=== PATIENT | male | born 1975 | race African-American/Black ===

== ENCOUNTER 2019-11-15 13:31 | Emergency (ER) | payer SELFPAY ==
[~2019-11-15] VITALS: Ht 167.6 cm; Wt 79.4 kg
[2019-11-15] MEDS ORDERED: IV NORMAL SALINE 1,000ML 1,000 ML IV ONE (14:00)
[2019-11-15 14:17] LABS: BASO # 0.1 x10^3/uL (0.0-0.2); BASO % 1 % (0-3); EOS # 0.1 x10^3/uL (0.0-0.7); EOS % 1 % (0-3); HEMATOCRIT 42.5 % (39.0-53.0); HEMOGLOBIN 14.2 g/dL (13.0-17.5); LYMPH # 1.4 x10^3/uL (1.0-4.8); LYMPH % 11 % (24-48); MEAN CORPUSCULAR HEMOGLOBIN 27 pg (25-35); MEAN CORPUSCULAR HGB CONC 34 g/dL (31-37); MEAN CORPUSCULAR VOLUME 81 fL (79-100); MONO # 0.6 x10^3/uL (0.0-1.1); MONO % 5 % (0-9); NEUT # 10.8 x10^3uL (1.8-7.7); NEUT % 83 % (31-73); PLATELET COUNT 227 x10^3/uL (140-400); RED BLOOD COUNT 5.23 x10^6/uL (4.30-5.70); RED CELL DISTRIBUTION WIDTH 14.1 % (11.5-14.5); WHITE BLOOD COUNT 13.1 x10^3/uL (4.0-11.0)
--- NOTE | 2019-11-15 14:19 | RAD ---
EXAM: Chest, 2 views. HISTORY: Dizziness. COMPARISON: None. FINDINGS: 2 views of the chest are obtained. There is multifocal infiltrate within the right upper, middle and lower lobes. There is no pleural effusion or pneumothorax. The heart is normal in size. IMPRESSION: Multifocal pneumonia within the right lung. Electronically signed by: Lindsey Epps MD (11/15/2019 2:16 PM) [facility]
--- NOTE | 2019-11-15 14:22 | RAD ---
EXAM: Head CT without contrast. HISTORY: Dizziness. TECHNIQUE: Computed tomographic images of the head were obtained without contrast. *One or more of the following individualized dose reduction techniques were utilized for this examination: 1. Automated exposure control. 2. Adjustment of the mA and/or kV according to patient size. 3. Use of iterative reconstruction technique. COMPARISON: None. FINDINGS: There is no acute or subacute extra-axial or intraparenchymal hemorrhage. There is no mass effect or midline shift. There is no hydrocephalus. The montgomery-white matter differential pattern is intact. There is a tiny cavum septum pellucidum. There is slight developmental asymmetry in the size of the left greater than right lateral ventricles. The visualized portions of the orbits, paranasal sinuses and mastoid air cells are unremarkable. No suspicious calvarial lesion is seen. IMPRESSION: No acute intracranial findings. Electronically signed by: Lindsey Epps MD (11/15/2019 2:19 PM) [facility]
[2019-11-15 14:29] LABS: CALCIUM 8.6 mg/dL (8.5-10.1); CREATININE 1.5 mg/dL (0.7-1.3); GFR 61.2; POTASSIUM 4.3 mmol/L (3.5-5.1)
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
[2019-11-15] MEDS ORDERED: ONDANSETRON PF 4 MG/2 ML VIAL. IVP ONE ×2 (14:30→18:00)
[2019-11-15] MEDS ORDERED: INSULIN REGULAR 100 UNIT/ML 3ML VIAL. IV ONE (14:30)
[2019-11-15 14:35] LABS: ALBUMIN 3.1 g/dL (3.4-5.0); ALBUMIN/GLOBULIN RATIO 0.8 (1.0-1.7); TOTAL BILIRUBIN 0.3 mg/dL (0.2-1.0)
--- NOTE | 2019-11-15 14:41 | EKG ---
[address] [address] Test Date: 2019-11-15 Test Time: 13:44:00 Pat Name: ANDREW BARTLETT Department: Room: Gender: M Informatics Manager: : 1975 Requested By: LEESA BELTRAN Order Number: [id number] Reading MD: Measurements Intervals [place] Rate: 84 P: 52 AR: 154 QRS: 42 QRSD: 84 T: 25 QT: 338 QTc: 402 Interpretive Statements SINUS RHYTHM OTHERWISE NORMAL ECG RI6.01 No previous ECG available for comparison
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
[2019-11-15 15:45] LABS: AMPHETAMINE/METHAMPHETAMINE NEG (NEG); BARBITURATES NEG (NEG); BENZODIAZEPINES NEG (NEG); CANNABINOIDS POS (NEG); COCAINE POS (NEG); METHADONE NEG (NEG); OPIATES NEG (NEG); PHENCYCLIDINE NEG (NEG)
[2019-11-15] MEDS ORDERED: AZITHROMYCIN 500 MG in IV NORMAL SALINE 250ML 250 ML IV ONE (15:45)
[2019-11-15] MEDS ORDERED: AZIT250T6 PO (15:52)
[2019-11-15 15:55] LABS: BACTERIA,URINE 0 /HPF (0-FEW); BILIRUBIN,URINE NEG (NEG); CLARITY,URINE CLEAR; COLOR,URINE YELLOW; GLUCOSE,URINE >=1000 mg/dL (NEG); NITRITE,URINE NEG (NEG); SQUAMOUS EPITHELIAL CELL,UR OCC /LPF; UROBILINOGEN,URINE 0.2 mg/dL (0.2 mg/dL); WBC,URINE RARE /HPF (0-4)
[2019-11-15] MEDS ORDERED: IV NORMAL SALINE 250ML 250 ML ONE (16:16)
[2019-11-15] MEDS ORDERED: IV NORMAL SALINE 50ML 50 ML ONE (16:17)
[2019-11-15] MEDS ORDERED: AZITHROMYCIN 500 MG VIAL. IV ONE (16:17)
[2019-11-15] MEDS ORDERED: cefTRIAXone SODIUM 1 GM VIAL ONE (16:17)
[2019-11-15 17:39] VITALS: BP 145/82
[2019-11-15] MEDS ORDERED: IV RINGERS SOLUTION,LACTATED 1,000 ML IV SCH (17:53)
[2019-11-15] MEDS ORDERED: ACETAMINOPHEN 500 MG TABLET PO ONE (18:00)
[2019-11-15] MEDS ORDERED: FAMOTIDINE 20 MG/2 ML VIAL IVP ONE (18:00)
[2019-11-15] MEDS ORDERED: MAGNESIUM CITRATE 296 ML SOLUTION. PO ONE (18:00)
== END 2019-11-15 17:50 | disposition home or self-care (01) ==
LOC: ER 13:36
DX: J18.1 Lobar pneumonia, unspecified organism (principal); R42 Dizziness and giddiness; M54.6 Pain in thoracic spine; E11.9 Type 2 diabetes mellitus without complications
CPT/HCPCS: 36415; 70450; 71046; 72072; 80053; 80307; 81001; 82947; 85025; 87040; 93005; 96361; 96365; 96367; 99285; J0456; J0696; J7050; J7030